=== PATIENT | male | born 1985 | race African-American/Black ===

== ENCOUNTER 2019-06-29 23:27 | Emergency (ER) | payer SELFPAY ==
[2019-06-29 23:37] VITALS: BP 125/71; PULSE 97; TEMP 98.3; BMI 33.0
--- NOTE | 2019-06-30 00:02 | PDOC ---
History of Present Illness - General Chief Complaint: Urinary Problem Stated Complaint: R/O UTI Time Seen by Provider: 06/30/19 00:01 Past History - Past Medical History Allergies/Adverse Reactions: Allergies Allergy/AdvReac Type Severity Reaction Status Date / Time No Known Allergies Allergy Verified 06/29/19 23:37 Home Medications: Ambulatory Orders Ciprofloxacin/Ciprofloxa HCl [Cipro Xr 500 mg Tablet] 500 mg PO BID 10 Days #20 tbmp.24hr 06/30/19 COPD: No - Psycho Social/Smoking Cessation Hx Smoking Status: Yes Smoking History: Current every day smoker Have you smoked in the past 12 months: No Number of Cigarettes Smoked Daily: 6 Information on smoking cessation initiated: No 'Breaking Loose' booklet given: 07/19/14 Hx Alcohol Use: No Drug/Substance Use Hx: No Substance Use Type: None *Physical Exam - Vital Signs Last Vital Signs Temp Pulse Resp BP Pulse Ox 98.3 F 97 H 18 125/71 99 06/29/19 23:28 06/29/19 23:28 06/29/19 23:28 06/29/19 23:28 06/29/19 23:28 Discharge - Discharge Information Problems reviewed: Yes Clinical Impression/Diagnosis: UTI (urinary tract infection) Qualifiers: Urinary tract infection type: site unspecified Hematuria presence: with hematuria Qualified Code(s): N39.0 - Urinary tract infection, site not specified ; R31.9 - Hematuria, unspecified Condition: Stable Disposition: HOME - Admission No - Additional Discharge Information Prescriptions: Ciprofloxacin/Ciprofloxa HCl [Cipro Xr 500 mg Tablet] 500 mg PO BID 10 Days #20 tbmp.24hr - Follow up/Referral Referrals: [facility] [place] [facility] [place] [Provider Group] - Patient Discharge Instructions Patient Printed Discharge Instructions: DI for Urinary Tract Infection (UTI) Additional Instructions: You were seen in the ER for urinary symptoms. We are diagnosing you with a UTI. Please take the antibiotic prescribed twice daily, with food, for ten days. Urinary infections are uncommon in men - make sure to follow up with the [facility] as soon as possible, in the next 4 days. Please return to the ER if you develop high fevers, chills, weakness, confusion. - Post Discharge Activity
[2019-06-30 00:23] LABS: EPI CELLS 0.9 /HPF (0-5/HPF); HYALINE CASTS 1 /lpf (0-8); URINE APPEARANCE CLOUDY; URINE BACTERIA 3649.9 /hpf (NEGATIVE); URINE BILIRUBIN 1+ (NEGATIVE); URINE COLOR ORANGE; URINE GLUCOSE (UA) NEGATIVE (NEGATIVE); URINE KETONE NEGATIVE (NEGATIVE); URINE LEUK ESTERASE 2+ (NEGATIVE); URINE NITRITE POSITIVE (NEGATIVE); URINE PROTEIN 1+ (NEGATIVE); URINE RBC 117 /hpf (0-4); URINE WBC 183 /hpf (0-5)
--- NOTE | 2019-06-30 00:38 | PDOC ---
Documentation entered by Neno Porter SCRIBE, acting as scribe for Sho Mcclellan MD. Sho Mcclellan MD: This documentation has been prepared by the German granados Daniel, SCRIBE, under my direction and personally reviewed by me in its entirety. I confirm that the documentation accurately reflects all work, treatment, procedures, and medical decision making performed by me. Attending Attestation - Resident Resident Name: Wagner Kitchen - ED Attending Attestation I have performed the following: I have examined & evaluated the patient, The case was reviewed & discussed with the resident, I agree w/resident's findings & plan, Exceptions are as noted - HPI HPI: 06/30/19 00:36 34yoM w/ + prior hx of UTI presnets w/ recurrent UTI symptoms. Unknown why this paient has had UTI, denies hx of STI, no penile discharge, no feves, no flank pain, no hx of congenital issues to pt's knowledge. Took OTC pyridium w/o relief of dysuria symptoms. - Physicial Exam PE: 06/30/19 00:37 Vital Signs - 24 hr 06/29/19 23:28 Temperature 98.3 F Pulse Rate 97 H Respiratory 18 Rate Blood Pressure 125/71 O2 Sat by Pulse 99 Oximetry (%) NAD, well appearing no CVAT exam as per resident note A&O x 3 - Medical Decision Making 06/30/19 00:38 34yoM hx of prior UTI presnets w/ s/s c/w recurrent UTI. - ua - ucx - abx for complicated uti - pmd f/u, unknown why this young male is getting UTIs.
[2019-06-30] MEDS ORDERED: CIPROFLOXACIN 500 MG TABLET (RESTRICTED TO ID) PO ONE (00:39)
[2019-06-30] MEDS ORDERED: levoFLOXacin 750 MG TABLET PO ONE (01:13)
== END 2019-06-30 01:21 | disposition home or self-care (01) ==
LOC: JER 23:27
DX: N39.0 Urinary tract infection, site not specified (principal); R31.9 Hematuria, unspecified; F17.210 Nicotine dependence, cigarettes, uncomplicated; Z87.440 Personal history of urinary (tract) infections
CPT/HCPCS: 81003; 87086; 87186; 99282-25

== ENCOUNTER 2020-03-03 22:09 | Emergency (ER) | payer OTHER ==
[2020-03-03 22:15] VITALS: TEMP 98; BMI 33.9
--- NOTE | 2020-03-03 22:15 | PDOC ---
Rapid Medical Evaluation Chief Complaint: Headache Time Seen by Provider: 03/03/20 22:13 Medical Evaluation: Allergies Allergy/AdvReac Type Severity Reaction Status Date / Time No Known Allergies Allergy Verified 06/29/19 23:37 03/03/20 22:13 34 year old c/o headache left side worse than right on and off for last 2weeks. denies nVD, fever/ chills, neck pain. denies taking anything for headache today. in the last two weeks has taken few doses of advil. Last Vital Signs Temp Pulse Resp BP Pulse Ox 98.0 F 92 H 18 146/79 99 03/03/20 22:12 03/03/20 22:12 03/03/20 22:12 03/03/20 22:12 03/03/20 22:12 History of migraines PE; patient alert ox3 A: headache P: labs iv
[2020-03-03] MEDS ORDERED: SODIUM CHLORIDE 1,000 ML IV ONE (22:17)
[2020-03-03] MEDS ORDERED: METOCLOPRAMIDE HCL INJECTION 10 MG/2 ML VIAL IVPB STA (22:17)
--- NOTE | 2020-03-03 22:40 | PDOC ---
Attending Attestation - Resident Resident Name: ErikaNeno Lucho - ED Attending Attestation I have performed the following: I have examined & evaluated the patient, The case was reviewed & discussed with the resident, I agree w/resident's findings & plan - HPI HPI: 03/04/20 00:42 see resident hpi - Physicial Exam PE: 03/04/20 00:42 see resident exam - Medical Decision Making 03/04/20 00:42 34-year-old male with throbbing headache, retro-orbital History of headaches in the past but has not had any recently IV fluid LR 1 L, Benadryl 50 mg, Reglan 10 mg and Decadron 10 mg given with relief CT scan of the brain shows no acute abnormalities Patient was advised at length that there is still a small chance of undiagnosed subarachnoid hemorrhage, he is refusing lumbar puncture at this time There is no criteria to hold patient against his will, he is alert and oriented x4 and has verbalized understanding of medical recommendations and instructions Patient to be discharged home as he has requested Discharge - Discharge Information Problems reviewed: Yes Clinical Impression/Diagnosis: Headache around the eyes - Follow up/Referral - Patient Discharge Instructions - Post Discharge Activity
[2020-03-03] MEDS ORDERED: METOCLOPRAMIDE HCL INJECTION 10 MG/2 ML VIAL ONE (23:27)
[2020-03-03] MEDS ORDERED: DEXAMETHASONE SOD PHOSPHATE 10 MG/1 ML VIAL ONE (23:27)
[2020-03-03 23:39] LABS: BASO % 0.3 % (0-2.0); EOS % 1.5 % (0-4.5); HEMATOCRIT 40.7 % (35.4-49); HEMOGLOBIN 13.7 GM/dL (11.7-16.9); LYMPH % 34.3 % (8-40); MCH 32.3 pg (25.7-33.7); MCHC 33.6 g/dl (32.0-35.9); MEAN CELL VOLUME 96.4 fl (80-96); MEAN PLT VOLUME 9.5 fl (7.5-11.1); MONO % 6.2 % (3.8-10.2); NEUT % 57.7 % (42.8-82.8); PLATELET COUNT 317 K/MM3 (134-434); RBC 4.22 M/mm3 (4.00-5.60); RDW 13.2 % (11.9-15.9); WHITE BLOOD COUNT 8.7 K/mm3 (4.0-10.0)
[2020-03-03] MEDS ORDERED: DEXAMETHASONE SOD PHOSPHATE 10 MG/1 ML VIAL IVPUSH ONE (23:41)
[2020-03-03] MEDS ORDERED: LACTATED RINGERS SOLUTION 1000 ML INFUS.BAG IV ONE (23:42)
[2020-03-04 00:12] LABS: ALBUMIN 3.8 g/dl (3.4-5.0); BILIRUBIN,TOTAL 0.4 mg/dL (0.2-1); BLOOD UREA NITROGEN 17.2 mg/dL (7-18); CALCIUM 9.2 mg/dL (8.5-10.1); CREATININE 1.4 mg/dL (0.55-1.3); POTASSIUM 4.1 mmol/L (3.5-5.1); TOT PROT 7.1 g/dl (6.4-8.2)
--- NOTE | 2020-03-04 01:11 | PDOC ---
*Physical Exam - Vital Signs Last Vital Signs Temp Pulse Resp BP Pulse Ox 98.0 F 92 H 18 146/79 99 03/03/20 22:12 03/03/20 22:12 03/03/20 22:12 03/03/20 22:12 03/03/20 22:12 ED Treatment Course - LABORATORY CBC & Chemistry Diagram: 03/03/20 23:14 03/03/20 23:14 - ADDITIONAL ORDERS Additional order review: Laboratory Results 03/03/20 03/03/20 23:22 23:14 Sodium 140 Potassium 4.1 Chloride 106 Carbon Dioxide 29 Anion Gap 5 L BUN 17.2 Creatinine 1.4 H Est GFR (CKD-EPI)AfAm 76.50 Est GFR (CKD-EPI)NonAf 66.01 POC Glucometer 104 Random Glucose 111 H Calcium 9.2 Total Bilirubin 0.4 AST 18 ALT 35 Alkaline Phosphatase 76 Total Protein 7.1 Albumin 3.8 03/03/20 03/03/20 23:22 23:14 RBC 4.22 MCV 96.4 H MCHC 33.6 RDW 13.2 MPV 9.5 Neutrophils % 57.7 Lymphocytes % 34.3 Monocytes % 6.2 Eosinophils % 1.5 Basophils % 0.3 POC Glucometer 104 - Medications Given in the ED: ED Medications Discontinued Medications Generic Name Dose Route Start Last Admin Trade Name Sterling PRN Reason Stop Dose Admin Dexamethasone Sodium Phosphate 10 mg 03/03/20 23:41 03/04/20 00:07 Decadron Injection - IVPUSH 03/03/20 23:42 10 mg ONCE ONE Administration Diphenhydramine HCl 50 mg 03/03/20 23:40 03/04/20 00:06 Benadryl Injection - IVPUSH 03/03/20 23:41 50 mg ONCE ONE Administration Lactated Ringer's 1,000 ml 03/03/20 23:42 03/04/20 00:05 Lactated Ringers Solution IV 03/03/20 23:43 1,000 ml NOW ONE Administration Metoclopramide HCl 10 mg 03/03/20 22:17 03/04/20 00:07 Reglan Injection - IVPB 03/03/20 22:18 10 mg ONCE STA Administration Discharge - Discharge Information Problems reviewed: Yes Clinical Impression/Diagnosis: Headache around the eyes Condition: Improved Disposition: HOME - Follow up/Referral - Patient Discharge Instructions Patient Printed Discharge Instructions: DI for Headache Additional Instructions: You came to the emergency department for a headache. CT imaging of your head did not show acute pathology. You can take [id number] tylenol for your pain.. Follow the instructions on the medication bottle. Make sure you do not take too much medicine. The maximum daily dose for tylenol is 4000mg/day. Follow-up with your primary care physician in the next 72 hours to discuss this ED visit and to further evaluate your headache. Your care is not complete until you do so. Call and make an appointment. Medical attention is required if: you experience persistent symptoms, severe headache, have a seizure, or have focal numbness or weakness. If you think you are having an emergency, call for emergency medical services or present to the emergency department right away - Post Discharge Activity Work/Back to School Note: Back to Work
[2020-03-04 01:33] VITALS: BP 109/69; PULSE 70
== END 2020-03-04 01:35 | disposition home or self-care (01) ==
LOC: JER 22:09
PROC: 3E0333Z Introduction of Anti-inflammatory into Peripheral Vein, Percutaneous Approach (ICD-10-PCS; principal; 2020-03-03)
PROC: 3E033GC Introduction of Other Therapeutic Substance into Peripheral Vein, Percutaneous Approach (ICD-10-PCS; 2020-03-03)
PROC: 3E0337Z Introduction of Electrolytic and Water Balance Substance into Peripheral Vein, Percutaneous Approach (ICD-10-PCS; 2020-03-03)
DX: G44.52 New daily persistent headache (NDPH) (principal)
CPT/HCPCS: 36415; 70450-TC; 80053; 82962; 85025; 99285-25; J1100

== ENCOUNTER 2021-05-29 17:45 | Emergency (ER) | payer OTHER ==
[2021-05-29 18:38] VITALS: BP 147/99; PULSE 110; TEMP 97.6; BMI 35.2
== END 2021-05-29 19:30 | disposition home or self-care (01) ==
LOC: JER 17:45
DX: Z11.52 Encounter for screening for COVID-19 (principal)
CPT/HCPCS: 99283-25; C9803; U0003; U0005

== ENCOUNTER 2022-10-02 08:05 | Emergency (ER) | payer OTHER ==
[2022-10-02 08:13] VITALS: TEMP 98.1; BMI 38.0
[2022-10-02] MEDS ORDERED: SODIUM CHLORIDE 0.9% 500 ML INFUS.BAG IV ONE ×2 (09:04→10:19)
[2022-10-02 09:38] LABS: EOS % 1.4 % (0-4.5); HEMATOCRIT 41.8 % (35.4-49); HEMOGLOBIN 13.8 GM/dL (11.7-16.9); LYMPH % 28.7 % (8-40); MCH 30.4 pg (25.7-33.7); MEAN CELL VOLUME 91.9 fl (80-96); MEAN PLT VOLUME 8.4 fl (7.5-11.1); NEUT % 57.9 % (42.8-82.8); PLATELET COUNT 478 10^3/uL (134-434); RBC 4.55 M/mm3 (4.00-5.60); RDW 16.2 % (11.9-15.9); WHITE BLOOD COUNT 5.8 K/mm3 (4.0-10.0)
[2022-10-02 10:02] LABS: CALCIUM 8.8 mg/dL (8.5-10.1)
[2022-10-02 10:03] LABS: BLOOD UREA NITROGEN 9.2 mg/dL (7-18)
[2022-10-02 10:06] LABS: CREATININE 1.4 mg/dL (0.55-1.3)
[2022-10-02 10:14] LABS: BILIRUBIN,TOTAL 0.8 mg/dL (0.2-1)
[2022-10-02 10:45] LABS: MAGNESIUM 2.3 mg/dL (1.8-2.4)
[2022-10-02 10:49] LABS: PHOSPHOROUS 3.1 mg/dL (2.5-4.9)
[2022-10-02 12:58] LABS: CALCIUM 8.3 mg/dL (8.5-10.1)
[2022-10-02 12:59] LABS: ALBUMIN 2.9 g/dl (3.4-5.0); BLOOD UREA NITROGEN 8.8 mg/dL (7-18); MAGNESIUM 2.1 mg/dL (1.8-2.4)
[2022-10-02 13:02] LABS: CREATININE 1.1 mg/dL (0.55-1.3); PHOSPHOROUS 2.5 mg/dL (2.5-4.9)
[2022-10-02 13:03] LABS: BILIRUBIN,TOTAL 0.9 mg/dL (0.2-1)
[2022-10-02 13:04] LABS: TOT PROT 6.3 g/dl (6.4-8.2)
[2022-10-02 13:09] LABS: PH,URINE 6.5 (5.0-8.0); URINE APPEARANCE CLEAR; URINE BILIRUBIN NEGATIVE (NEGATIVE); URINE COLOR YELLOW; URINE GLUCOSE (UA) NEGATIVE (NEGATIVE); URINE KETONE NEGATIVE (NEGATIVE); URINE LEUK ESTERASE NEGATIVE (NEGATIVE); URINE NITRITE NEGATIVE (NEGATIVE); URINE PROTEIN NEGATIVE (NEGATIVE)
[2022-10-02 13:41] VITALS: BP 137/80; PULSE 82; RESP 20
== END 2022-10-02 13:42 | disposition home or self-care (01) ==
LOC: JER 08:05
DX: M79.10 Myalgia, unspecified site (principal)
CPT/HCPCS: 36415; 80053; 81003; 82550; 82553; 83735; 84100; 85025; 93005; 93010; 99285-25